=== PATIENT | male | born 1960 | race Caucasian/White ===

== ENCOUNTER → 2018-05-07 | Outpatient (CLI) | payer OTHER | END | disposition home or self-care (01) | LOC: RAD 16:22 | PROVIDERS: ATTEND Nurse Practitioner Family | DX: M79.671 Pain in right foot (principal) ==

== ENCOUNTER 2018-07-23 13:01 | Outpatient (CLI) | payer OTHER ==
[2018-07-23] MEDS ORDERED: GADOBUTROL 7.5 MMOL/7.5 ML PFS ONE (13:49)
== END 2018-07-23 23:59 | disposition home or self-care (01) ==
LOC: CFH 13:01
PROVIDERS: ATTEND Nurse Practitioner Family
DX: I63.81 Other cerebral infarction due to occlusion or stenosis of small artery (principal)
CPT/HCPCS: 70553; A9585

== ENCOUNTER 2019-05-08 13:00 | Inpatient (IN) | payer OTHER ==
[~2019-05-08] VITALS: Ht 177.8 cm; Wt 99.8 kg
[~2019-05-08 13:00] MED LIST: ACET-1600 PO; ATOR20TA37 PO; BUPR150T6 PO; OMEP-110 PO
[2019-07-12] MEDS ORDERED: GABAPENTIN 300 MG CAPSULE PO ONE (06:30)
[2019-07-12] MEDS ORDERED: TRANEXAMIC ACID 100 MG/ML, 10ML ONE ×2 (06:31)
[2019-07-12] MEDS ORDERED: KETOROLAC 60 MG/2 ML ONE (06:31)
[2019-07-12] MEDS ORDERED: ROPIvacaine/PF 0.5%, 30 ML ONE (06:32)
[2019-07-12] MEDS ORDERED: ROPIvacaine/PF 0.5%, 20 ML ONE (06:32)
[2019-07-12] MEDS ORDERED: EPINEPHRINE 1 MG/ML, 1ML ONE (06:32)
[2019-07-12] MEDS ORDERED: VANCOMYCIN 1,000 MG ONE (06:32)
[2019-07-12] MEDS ORDERED: LACTATED RINGERS 1,000 ML IV SCH (06:49)
[2019-07-12] MEDS ORDERED: MAGNESIUM HYDROXIDE 8%, 30ML UDC PO PRN (07:00)
[2019-07-12] MEDS ORDERED: HYDROcodone/APAP 5/325 TABLET PO PRN (07:00)
[2019-07-12] MEDS ORDERED: SENNA/DOCUSATE TABLET PO PRN (07:00)
[2019-07-12] MEDS ORDERED: BISACODYL 10 MG SUPP PR PRN (07:00)
[2019-07-12] MEDS ORDERED: ZOLPIDEM 5MG TABLET PO PRN (07:00)
[2019-07-12] MEDS ORDERED: SCOPOLAMINE PATCH, 1.5MG PATCH.TD72 TD ONE (07:00)
[2019-07-12] MEDS ORDERED: ONDANSETRON 2MG/ML, 2ML IV PRN ×2 (07:00→09:00)
[2019-07-12] MEDS ORDERED: FENTANYL PF 250 MCG/5ML ONE (07:33)
[2019-07-12] MEDS ORDERED: MIDAZOLAM 1 MG/ML, 2ML ONE (07:33)
[2019-07-12] MEDS ORDERED: PROPOFOL 10 MG/ML, 20ML ONE (07:35)
[2019-07-12] MEDS ORDERED: ROCURONIUM 10MG/ML,5ML ONE (07:35)
[2019-07-12] MEDS ORDERED: CEFAZOLIN 1,000 MG ONE ×2 (08:31)
[2019-07-12 08:33] LABS: MEAN CORPUSCULAR HEMOGLOBIN 33.1 pg (27.5-34.5); MEAN CORPUSCULAR HGB CONC 33.2 g/dL (33.2-36.2); MEAN CORPUSCULAR VOLUME 99.6 fL (81-97); RED BLOOD COUNT 4.66 x10^6/uL (4.38-5.82); RED CELL DISTRIBUTION WIDTH 13.2 % (9.4-14.8)
[2019-07-12 08:36] LABS: MEAN PLATELET VOLUME 7.9 fL (7.4-10.4); PLATELET COUNT 67 x10^3/uL (130-400)
[2019-07-12 08:37] LABS: BASOPHILS # (AUTO) 0.02 x10^3/uL (0-0.1); BASOPHILS % (AUTO) 0 % (0-1); EOSINOPHILS # (AUTO) 0.07 x10^3/uL (0-0.4); EOSINOPHILS % (AUTO) 2 % (1-7); LYMPHOCYTES # (AUTO) 1.55 x10^3/uL (1-3.4); LYMPHOCYTES % (AUTO) 32 % (22-44); MD SCAN; MONOCYTES % (AUTO) 10 % (2-9); NEUTROPHILS # (AUTO) 2.68 x10^3/uL (1.8-6.8); NEUTROPHILS % (AUTO) 56 % (42-75)
[2019-07-12] MEDS ORDERED: DEXAMETHASONE 4 MG/ML, 1ML ONE (08:57)
[2019-07-12] MEDS ORDERED: ONDANSETRON 2MG/ML, 2ML ONE (08:57)
[2019-07-12] MEDS ORDERED: OXYcodone 5 MG/5 ML ORAL.SOL UDC PO PRN (09:00)
[2019-07-12] MEDS ORDERED: PROMETHAZINE 25 MG/ML, 1ML IV PRN (09:00)
[2019-07-12] MEDS ORDERED: HYDROmorphone 2 MG/ML, 1ML IVPush PRN (09:00)
[2019-07-12] MEDS: TEMPLATE NON-FORMULARY MED. (Bupropion Hcl** (Bupropion Xl**) 150 MG) PO SCH (09:00)
[2019-07-12] MEDS ORDERED: MEPERIDINE/PF 25MG/ML,1ML IVPush PRN (09:00)
[2019-07-12] MEDS: DOCUSATE 100 MG CAPSULE PO SCH ×3 (09:00→20:11)
[2019-07-12] MEDS: OMEPRAZOLE 20 MG CAPSULE.DR PO SCH ×2 (09:00→12:53)
[2019-07-12] MEDS ORDERED: hydrALAzine 20 MG/ML, 1ML IV PRN (09:00)
[2019-07-12] MEDS ORDERED: LABETALOL 5MG/ML, 20ML IV PRN (09:00)
[2019-07-12] MEDS ORDERED: GLYCOPYRROLATE 0.2MG/1ML, 5ML ONE (09:09)
[2019-07-12] MEDS ORDERED: NEOSTIGMINE 1 MG/ML, 10ML ONE (09:09)
[2019-07-12] MEDS ORDERED: FENTANYL PF 100 MCG/2ML ONE ×2 (09:34→09:57)
[2019-07-12] MEDS ORDERED: OXYcodone 5 MG/5 ML ORAL.SOL UDC ONE (09:34)
[2019-07-12] MEDS: FENTANYL PF 100 MCG/2ML IV PRN ×4 (09:36→10:18)
[2019-07-12] MEDS ORDERED: MEPERIDINE/PF 25MG/ML,1ML ONE (09:38)
[2019-07-12] MEDS ORDERED: HYDROmorphone 1 MG/ML, 1ML INJ ONE (10:28)
[2019-07-12] MEDS ORDERED: TRANEXAMIC ACID 1,000 MG in SODIUM CHLORIDE 0.9% 100 ML IV ONE (10:30)
[2019-07-12 12:13] VITALS: BP 126/64
[2019-07-12] MEDS: NS + 20MEQ KCL 1,000 ML IV SCH ×2 (12:53→23:57)
[2019-07-12] MEDS: OXYcodone IR 5MG TABLET PO PRN ×3 (15:53→23:53)
[2019-07-12] MEDS: CEFAZOLIN PMX 2GM/50ML 50 ML IVPB SCH ×2 (15:58→23:57)
[2019-07-12] MEDS ORDERED: ASPIRIN 81 MG TABLET EC PO SCH (18:00)
[2019-07-12 18:38] VITALS: BP 123/81
[2019-07-12] MEDS: ATORVASTATIN 20 MG TABLET PO SCH (20:11)
[2019-07-12] MEDS: DIPHENHYDRAMINE 50 MG CAPSULE PO PRN (20:11)
[2019-07-12] MEDS: ACETAMINOPHEN 325 MG TABLET PO PRN (23:57)
[2019-07-13 01:04] VITALS: BP 128/74
[2019-07-13] MEDS: DIPHENHYDRAMINE 50 MG CAPSULE PO PRN ×3 (02:36→21:53)
[2019-07-13] MEDS: OXYcodone IR 5MG TABLET PO PRN ×5 (04:11→22:50)
[2019-07-13] MEDS ORDERED: DEXAMETHASONE 4 MG/ML, 1ML IVPush SCH (06:00)
[2019-07-13 06:50] VITALS: BP 105/71
[2019-07-13] MEDS: OMEPRAZOLE 20 MG CAPSULE.DR PO SCH (07:50)
[2019-07-13] MEDS: DOCUSATE 100 MG CAPSULE PO SCH ×2 (07:50→21:53)
[2019-07-13] MEDS: TEMPLATE NON-FORMULARY MED. (Bupropion Hcl** (Bupropion Xl**) 150 MG) PO SCH (09:00)
[2019-07-13] MEDS: ACETAMINOPHEN 325 MG TABLET PO PRN ×3 (09:11→22:50)
[2019-07-13 13:24] VITALS: BP 113/71
[2019-07-13] MEDS: NS + 20MEQ KCL 1,000 ML IV SCH (14:01)
[2019-07-13] MEDS: ATORVASTATIN 20 MG TABLET PO SCH (21:53)
[2019-07-13 23:07] VITALS: BP 114/72
[2019-07-14] MEDS: NS + 20MEQ KCL 1,000 ML IV SCH ×2 (01:44→15:01)
[2019-07-14 03:00] VITALS: BP 115/70
[2019-07-14] MEDS: OXYcodone IR 5MG TABLET PO PRN ×2 (03:06→10:45)
[2019-07-14] MEDS: ACETAMINOPHEN 325 MG TABLET PO PRN ×2 (03:06→16:07)
[2019-07-14] MEDS: TEMPLATE NON-FORMULARY MED. (Bupropion Hcl** (Bupropion Xl**) 150 MG) PO SCH (07:45)
[2019-07-14] MEDS: DOCUSATE 100 MG CAPSULE PO SCH ×2 (07:45→20:47)
[2019-07-14] MEDS: OMEPRAZOLE 20 MG CAPSULE.DR PO SCH (07:45)
[2019-07-14 07:47] VITALS: BP 122/85
[2019-07-14] MEDS ORDERED: OXYC5TAB3 PO (10:15)
[2019-07-14] MEDS ORDERED: MELO7.5T31 PO (10:16)
[2019-07-14] MEDS ORDERED: TRAM50TA2 PO (10:16)
[2019-07-14] MEDS: ONDANSETRON 4 MG TABLET PO PRN ×2 (11:28→17:40)
[2019-07-14] MEDS ORDERED: SODIUM CHLORIDE 0.9% 1,000ML IVBOLUS ONE ×2 (12:00→17:30)
[2019-07-14 13:47] VITALS: BP 124/79
[2019-07-14 20:07] VITALS: BP 115/71
[2019-07-14] MEDS: BUPROPION 75 MG TABLET PO SCH (20:47)
[2019-07-14] MEDS: ATORVASTATIN 20 MG TABLET PO SCH (20:47)
[2019-07-15] MEDS: ACETAMINOPHEN 325 MG TABLET PO PRN ×3 (01:05→12:49)
[2019-07-15 02:16] VITALS: BP 125/78
[2019-07-15] MEDS: NS + 20MEQ KCL 1,000 ML IV SCH ×2 (03:18→08:15)
[2019-07-15 05:29] LABS: MEAN CORPUSCULAR HEMOGLOBIN 33.1 pg (27.5-34.5); MEAN CORPUSCULAR HGB CONC 33.6 g/dL (33.2-36.2); MEAN CORPUSCULAR VOLUME 98.4 fL (81-97); RED BLOOD COUNT 3.88 x10^6/uL (4.38-5.82); RED CELL DISTRIBUTION WIDTH 12.8 % (9.4-14.8)
[2019-07-15 05:38] LABS: PLATELET COUNT 45 x10^3/uL (130-400)
[2019-07-15 05:51] LABS: BASOPHILS # (AUTO) 0.01 x10^3/uL (0-0.1); BASOPHILS % (AUTO) 0 % (0-1); EOSINOPHILS # (AUTO) 0.04 x10^3/uL (0-0.4); EOSINOPHILS % (AUTO) 1 % (1-7); LYMPHOCYTES # (AUTO) 1.52 x10^3/uL (1-3.4); LYMPHOCYTES % (AUTO) 27 % (22-44); MD SCAN; MONOCYTES # (AUTO) 0.81 x10^3/uL (0.2-0.8); MONOCYTES % (AUTO) 15 % (2-9); NEUTROPHILS # (AUTO) 3.22 x10^3/uL (1.8-6.8); NEUTROPHILS % (AUTO) 58 % (42-75)
[2019-07-15 06:30] VITALS: BP 129/77
[2019-07-15] MEDS: OMEPRAZOLE 20 MG CAPSULE.DR PO SCH (08:14)
[2019-07-15] MEDS: DOCUSATE 100 MG CAPSULE PO SCH (08:14)
[2019-07-15] MEDS: BUPROPION 75 MG TABLET PO SCH (08:15)
[2019-07-15 12:47] VITALS: BP 103/65
== END 2019-07-15 13:10 | disposition home health service (06) | DRG 470 ==
LOC: ORIP 07-12 06:13 → 4NE 07-12 11:39 → DCLOUNGE 07-15 13:01
PROVIDERS: ADMIT Orthopaedic Surgery; ATTEND Orthopaedic Surgery
PROC: 0SRB06A Replacement of Left Hip Joint with Oxidized Zirconium on Polyethylene Synthetic Substitute, Uncemented, Open Approach (ICD-10-PCS; principal; 2019-07-12 08:15)
DX: M16.12 Unilateral primary osteoarthritis, left hip (principal); D69.3 Immune thrombocytopenic purpura
CPT/HCPCS: 36415; 72170; 76000; 85014; 85018; 85025; 86850; 86900; C1713; G0378; J0171; J0690; J1100; J1170; J1885; J2250; J2405; J2704; J2710; J2795; J3010; J3370; J3480; Q0162; C1776; J2175; J7030; J7120

== ENCOUNTER 2019-06-25 08:21 | Outpatient (CLI) | payer OTHER | END 2019-06-25 23:59 | disposition home or self-care (01) | LOC: STAR 08:21 | PROVIDERS: ATTEND Orthopaedic Surgery | DX: Z02.9 Encounter for administrative examinations, unspecified (principal) ==